=== PATIENT | male | born 1985 | race African-American/Black ===

== ENCOUNTER 2017-06-05 07:40 | Emergency (ER) | payer BC, OTHER ==
[2017-06-05 08:01] VITALS: BP 122/71; PULSE 70; TEMP 98.6; BMI 28.5
--- NOTE | 2017-06-05 08:28 | PDOC ---
History of Present Illness - General Chief Complaint: Cold Symptoms Stated Complaint: COLD SYMPTOMS, VOMITING Time Seen by Provider: 06/05/17 08:11 History Source: Patient Exam Limitations: No Limitations - History of Present Illness Initial Comments: 06/05/17 08:23 31yr male states "flu symptoms" for 3 days no vomiting has diarrhea , nauea and cough. no medical history has sick contacts at home. no smokine no drug use no allergies. pt asking for work note for today. Timing/Duration: reports: getting worse Severity: reports: mild Possible Cause: Yes: illness exposure Associated Symptoms: reports: cough, lightheadedness, nasal congestion Past History - Past Medical History Allergies/Adverse Reactions: Allergies Allergy/AdvReac Type Severity Reaction Status Date / Time No Known Allergies Allergy Verified 06/05/17 07:56 Home Medications: Ambulatory Orders NK [No Known Home Medication] 06/05/17 COPD: No - Suicide/Smoking/Psychosocial Hx Smoking History: Never smoked Have you smoked in the past 12 months: No Information on smoking cessation initiated: No Hx Alcohol Use: No Drug/Substance Use Hx: No Substance Use Type: None *Physical Exam - Vital Signs Last Vital Signs Temp Pulse Resp BP Pulse Ox 98.6 F 70 18 122/71 100 06/05/17 07:56 06/05/17 07:56 06/05/17 07:56 06/05/17 07:56 06/05/17 07:56 - Physical Exam General Appearance: Yes: Nourished, Appropriately Dressed HEENT: positive: EOMI, MAURICIO, Normal ENT Inspection, TMs Normal, Pharynx Normal, Nasal Congestion Neck: negative: Tender, Lymphadenopathy (R), Lymphadenopathy (L) Respiratory/Chest: positive: Lungs Clear, Normal Breath Sounds. negative: Chest Tender, Rhonchi, Stridor, Wheezing Cardiovascular: positive: Regular Rhythm, Regular Rate Gastrointestinal/Abdominal: positive: Normal Bowel Sounds Musculoskeletal: positive: Normal Inspection Extremity: positive: Normal Capillary Refill, Normal Inspection, Normal Range of Motion Integumentary: positive: Normal Color, Dry, Warm Neurologic: positive: Fully Oriented, Alert, Normal Mood/Affect, Normal Response , Motor Strength 5/5 Medical Decision Making - Medical Decision Making 06/05/17 08:37 cc: flu like symptoms body aches nasal congestion no fever no vomiting lungs CTA pt asking for an absent work note for today will dc home with supportive care non toxic and stable vitals pt states his daughter has same symptoms *DC/Admit/Observation/Transfer Diagnosis at time of Disposition: Viral upper respiratory illness - Discharge Dispostion Disposition: HOME Condition at time of disposition: Good - Referrals Referrals: Salvador Toure MD, MD [Primary Care Provider] - - Patient Instructions Printed Discharge Instructions: How to Avoid a Cold or Flu, DI for Viral Upper Respiratory Infection -- Adult Additional Instructions: get pleanty of rest at home avoid crowds, parties etc increase vitamin C and zinc in your diet (over the counter Kandi C or Airborne) take motrin 600mg every 6hrs for body aches or fever as directed you must drink pleanty of fluids, ice pops ets to stay well hydrated follow with your doctor in 2-3 days if worse or return to ER for any worsening symptoms - Post Discharge Activity Forms/Work/School Notes: Back to Work
== END 2017-06-05 08:39 | disposition home or self-care (01) ==
LOC: JERFT 07:40 → JER 07:40 → JERFT 08:39
DX: J06.9 Acute upper respiratory infection, unspecified (principal); B97.89 Other viral agents as the cause of diseases classified elsewhere
CPT/HCPCS: 99281-25